=== PATIENT | male | born 1990 | race Two or more races ===

== ENCOUNTER 2017-02-14 04:05 | Emergency (ER) | payer SELFPAY ==
[2017-02-14] MEDS ORDERED: NO HOME MEDICATION XX (04:17)
[2017-02-14] MEDS ORDERED: NORCO 5/3251 TAB PO (04:48)
[2017-02-14] MEDS ORDERED: AMOXICILLIN875 M1 PO (04:48)
== END 2017-02-14 05:11 ==
LOC: EDMED 04:05
DX: J02.0 Streptococcal pharyngitis (principal)